=== PATIENT | male | born 1970 | race Caucasian/White ===

== ENCOUNTER 2017-02-17 17:20 | Emergency (ER) | payer MEDICAID ==
[~2017-02-17] VITALS: Ht 165.1 cm; Wt 69.0 kg
[~2017-02-17 17:20] MED LIST: HYDR-3498 PO; IBUP-1542 PO
[2017-02-17 17:23] VITALS: Ht 165.1 cm; Wt 69.0 kg
[2017-02-17] MEDS ORDERED: IBUPROFEN 800 MG TAB PO ONE (18:30)
--- NOTE | 2017-02-17 19:50 | RADRPT ---
PROCEDURE: XR Hand. CLINICAL INDICATION: Fourth and first finger pain TECHNIQUE: PA, oblique and lateral views of the right hand were obtained. COMPARISON: None available. FINDINGS: Mineralization is within normal limits. Subtle hairline fracture through the posterior base of the f ourth distal phalanx is present best seen on the oblique and lateral views. No additional fractures are noted. Joint spaces are preserved. Soft tissues are unremarkable. No radiopaque foreign body is present. RPTAT:HJJR IMPRESSION: Subtle acute, closed, nondisplaced hairline fracture involving the posterior distal phalangeal base of the fourth finger right hand. Physician Kenna Date Time Electronically viewed and signed by Physician Kenna on 02/17/2017 19:49 JR/
--- NOTE | 2017-02-17 20:18 | ERD ---
ER Documentation Chief Complaint Date/Time DATE: 02/17/17 TIME: 20:03 Chief Complaint right pinky pain HPI This is a 46-year-old male who presents to the emergency room for evaluation of a right-sided finger pain after a ground-level fall he had approximately 10 days ago. The patient is complaining of pain in his fourth digit. He denies any numbness or tingling in his fingers and came to the ER for evaluation. ROS All systems reviewed and are negative except as per history of present illness. Medications Home Meds Active Scripts Ibuprofen* (Motrin*) 600 Mg Tab, 600 MG PO Q6, #20 TAB Prov:ISAI ORLANDO PA-C 05/03/15 Hydrocodone Bit-Acetaminophen* (Lafitte*) 5-325 Mg Tab, 1 TAB PO Q6 Y for PAIN, # 10 TAB Prov:ISAI ORLANDO PA-C 05/03/15 Allergies Allergies: Coded Allergies: No Known Allergy (Unverified , 05/03/15) PMhx/Soc History of Surgery: No Anesthesia Reaction: No Hx Neurological Disorder: No Hx Respiratory Disorders: No Hx Cardiac Disorders: No Hx Psychiatric Problems: No Hx Miscellaneous Medical Probl: No (PT DENIES MED AND SURG HX.) Hx Alcohol Use: No Hx Substance Use: No Hx Tobacco Use: No Smoking Status: Never smoker Physical Exam Vitals Vital Signs Date Time Temp Pulse Resp B/P Pulse Ox O2 Delivery O2 Flow Rate FiO2 02/17/17 17:23 99.0 75 18 160/89 99 Physical Exam Const: No acute distress Head: [Atraumatic] Eyes: [Normal Conjunctiva] ENT: [Normal External Ears, Nose and Mouth.] Neck: [Full range of motion. No meningismus.] Resp: [Clear to auscultation bilaterally] Cardio: [Regular rate and rhythm, no murmurs] Abd: [Soft, non tender, non distended. Normal bowel sounds] Skin: [No petechiae or rashes] Back: [No midline or flank tenderness] Ext: Tender to palpation of the distal phalanx on the fourth digit of the right hand [No cyanosis, or edema] Neur: [Awake and alert] Psych: [Normal Mood and Affect] Results 24 hrs Current Medications Medications (Trade) Dose Ordered Sig/Will Route PRN Reason Start Time Stop Time Status Last Admin Dose Admin Ibuprofen (Motrin) 800 mg ONCE ONCE PO 02/17/17 18:30 02/17/17 18:31 DC 02/17/17 18:37 Procedures/MDM X-ray Hand 3V interpreted by me: Scaphoid: [Normal] Bones: Subtle acute, closed, nondisplaced hairline fracture involving the posterior distal phalangeal base of the fourth finger right hand. Joints: [No dislocation] Foreign body: [None] A finger splint was applied by the tech under my direct supervision. After splint application, the patient was appreciated to have a normal distal neurovascular examination. This is a 46-year-old male who presents to the emergency room for evaluation of right hand pain after a ground-level fall. The patient was found to have a acute closed nondisplaced hairline fracture of his distal phalangeal base of the fourth digit on the right hand. Patient is neurovascularly intact. He will be discharged home with Motrin, and referral for orthopedic follow-up Departure Diagnosis: Primary Impression: Finger fracture, right Condition: Stable GENET NAYAK DO Feb 17, 2017 20:18
[2017-02-17] MEDS ORDERED: IBUP800T25 PO (21:04)
[2017-02-17 21:15] VITALS: BP 181/94; PULSE 60; RESP 18; TEMP 99
== END 2017-02-17 21:15 | disposition home or self-care (01) ==
LOC: FTE 17:20
DX: S62.664A Nondisplaced fracture of distal phalanx of right ring finger, initial encounter for closed fracture (principal); W18.39XA Other fall on same level, initial encounter; Y92.9 Unspecified place or not applicable
CPT/HCPCS: 29130; 73130; Z7502; Z7610